=== PATIENT | female | born 1955 | race Caucasian/White ===

== ENCOUNTER 2018-02-27 14:41 | Inpatient (IN) | payer BC ==
[~2018-02-27] VITALS: Ht 160 cm; Wt 57.8 kg
[~2018-02-27 14:41] MED LIST: 5-HY1CAP3 PO; CALC-440 PO; CHOL1CAP57 PO; FLV1 PO; METO25TA56 PO; SLFEC500 PO
[2018-02-27] MEDS ORDERED: METOPROLOL TARTRATE 1 MG/ML VIAL IV STA ×2 (14:56→15:21)
[2018-02-27] MEDS ORDERED: SODIUM CHLORIDE 0.9% 1000ML 500 ML IV STA (14:56)
[2018-02-27] MEDS ORDERED: NITROGLYCERIN 2% OINTMENT 30GM TUBE EXT ONE (15:00)
[2018-02-27 15:14] LABS: HEMATOCRIT 45.4 % (37-47); HEMOGLOBIN 15.4 g/dL (12.0-16.0); MEAN CELL VOLUME 91.7 fL (80-100); MEAN CORPUSCULAR HEMOGLOBIN 31.1 pg (25-34); MEAN CORPUSCULAR HGB CONC 33.9 g/dl (32-36); MEAN PLATELET VOLUME 11.3 fL (7.4-10.4); PLATELET COUNT 210 K/uL (130-400); RED CELL DISTRIBUTION WIDTH CV 14.5 % (11.5-14.5); RED CELL DISTRIBUTION WIDTH SD 48.3 fL (36.4-46.3); WHITE BLOOD COUNT 13.94 K/uL (4.8-10.8)
[2018-02-27 15:22] LABS: INR 0.9 (0.9-1.1); PTT PATIENT 25.7 SECONDS (21.0-31.0)
[2018-02-27 15:37] LABS: ALBUMIN 3.8 gm/dl (3.4-5.0); CALCIUM 9.3 mg/dl (8.5-10.1); CREATININE 0.77 mg/dl (0.60-1.20); POTASSIUM 3.5 mmol/L (3.5-5.1); TOTAL PROTEIN 7.7 gm/dl (6.4-8.2)
--- NOTE | 2018-02-27 15:44 | DIAGNOSTIC IMAGING REPORT ---
CHEST ONE VIEW PORTABLE CLINICAL HISTORY: 62 years-old Female presenting with CHEST PAIN. TECHNIQUE: Portable upright AP view of the chest was obtained. COMPARISON: None. FINDINGS: Cardiomediastinal silhouette normal. Lungs and pleural spaces clear. Osseous structures normal. Upper abdomen normal. IMPRESSION: 1. No acute cardiopulmonary disease. Electronically signed by: Marino Maya M.D. 02/27/2018 3:43 PM Dictated Date/Time: 02/27/2018 3:42 PM
[2018-02-27] MEDS ORDERED: METO25TA3 PO (15:57)
--- NOTE | 2018-02-27 16:34 | EMERGENCY ROOM VISIT NOTE ---
History Report prepared by Elvis: Marleni Haynes Under the Supervision of: Dr. Raphael Pena M.D. 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 She states when her chest pain began, she felt an ache and rates it as a 9/10 in severity. She reports her episode lasted about 1 hour and alleviated after she took Naproxen. She notes she had some diaphoresis and nausea but denies any SOB or history of cardiac issues. The patient is a current smoker. The chest pain has been intermittent since the initial episode. 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 A total of 10 systems reviewed and were otherwise negative. Past Medical & Surgical Medical Problems: (1) No significant past medical history Family History Omitted secondary to age Social History Smoking Status: Current Every Day Smoker Marital Status: Housing Status: lives with significant other Current/Historical Medications Scheduled 5-Hydroxytryptophan (5-Htp), 200 MG PO QPM Cholecalciferol (Vitamin D3), 1,000 PO QAM Folic Acid (Folic Acid), PO QAM Metoprolol Succ (Toprol Xl) (Toprol-Xl), 75 MG PO QPM Sulfasalazine (Sulfasalazine), 500 MG PO BID Allergies Coded Allergies: Escitalopram (Verified Allergy, Intermediate, HALLUCINATES, 02/27/18) Erythromycin (Verified Allergy, Mild, STOMACH UPSET, 02/27/18) Uncoded Allergies: BEE STINGS, HONEY BEE (Allergy, Severe, THROAT SWELLS SHUT, 03/29/15) Physical Exam Vital Signs Date Time Temp Pulse Resp B/P (MAP) Pulse Ox O2 Delivery O2 Flow Rate FiO2 02/27/18 16:50 84 20 140/90 94 Room Air 02/27/18 16:35 71 16 151/97 97 Room Air 02/27/18 15:46 76 24 180/102 95 Room Air 02/27/18 15:41 81 21 171/119 98 02/27/18 15:36 91 169/108 02/27/18 15:13 107 02/27/18 15:09 102 173/102 02/27/18 15:07 103 18 173/102 96 Room Air 02/27/18 15:07 95 Room Air 02/27/18 15:07 98 Room Air 02/27/18 14:43 36.7 98 18 183/100 98 Room Air Physical Exam GENERAL: Patient is in no acute distress. HEENT: No acute trauma, normocephalic atraumatic, mucous membranes moist, no nasal congestion, no scleral icterus. NECK: No stridor, no adenopathy, no meningismus, trachea is midline. LUNGS: Clear to auscultation bilaterally, no wheeze, no rhonchi, breath sounds equal. HEART: Tachycardic with a regular rhythm no murmurs ABDOMEN: Soft, nontender, bowel sounds positive, no hernias, no peritonitis. EXTREMITIES: No cyanosis or edema, full range of motion of all the joints without pain or difficulty, no signs for acute trauma. NEUROLOGIC: Oriented x 3, no acute motor or sensory deficits, no focal weakness. SKIN: No rash, no jaundice, no diaphoresis. Medical Decision & Procedures ER Provider Diagnostic Interpretation: Radiology results as stated below per my review and radiologist interpretation: CHEST ONE VIEW PORTABLE CLINICAL HISTORY: 62 years-old Female presenting with CHEST PAIN. TECHNIQUE: Portable upright AP view of the chest was obtained. COMPARISON: None. FINDINGS: Cardiomediastinal silhouette normal. Lungs and pleural spaces clear. Osseous structures normal. Upper abdomen normal. IMPRESSION: 1. No acute cardiopulmonary disease. Electronically signed by: Marino Maya M.D. 02/27/2018 3:43 PM Laboratory Results 02/27/18 14:55 02/27/18 14:55 Test 02/27/18 14:55 02/27/18 15:08 Red Blood Count 4.95 M/uL (4.2-5.4) Mean Corpuscular Volume 91.7 fL (80-100) Mean Corpuscular Hemoglobin 31.1 pg (25-34) Mean Corpuscular Hemoglobin Concent 33.9 g/dl (32-36) RDW Standard Deviation 48.3 fL (36.4-46.3) RDW Coefficient of Variation 14.5 % (11.5-14.5) Mean Platelet Volume 11.3 fL (7.4-10.4) Prothrombin Time 9.6 SECONDS (9.0-12.0) Prothromb Time International Ratio 0.9 (0.9-1.1) Activated Partial Thromboplast Time 25.7 SECONDS (21.0-31.0) Partial Thromboplastin Ratio 1.0 Anion Gap 8.0 mmol/L (3-11) Est Creatinine Clear Calc Drug Dose 61.0 ml/min Estimated GFR () 94.6 Estimated GFR (Non- 81.6 BUN/Creatinine Ratio 22.8 (10-20) Calcium Level 9.3 mg/dl (8.5-10.1) Magnesium Level 2.0 mg/dl (1.8-2.4) Total Bilirubin 0.3 mg/dl (0.2-1) Aspartate Amino Transf (AST/SGOT) 59 U/L (15-37) Alanine Aminotransferase (ALT/SGPT) 25 U/L (12-78) Alkaline Phosphatase 129 U/L (45-117) Troponin I 4.890 ng/ml (0-0.045) Total Protein 7.7 gm/dl (6.4-8.2) Albumin 3.8 gm/dl (3.4-5.0) Globulin 3.9 gm/dl (2.5-4.0) Albumin/Globulin Ratio 1.0 (0.9-2) Lipase 148 U/L (73-393) Bedside Troponin I 3.530 ng/ml (0-0.045) Laboratory results reviewed by me. Medications Administered Medications (Trade) Dose Ordered Sig/Lena Route Start Time Stop Time Status Last Admin Dose Admin Sodium Chloride 500 ml @ 999 mls/hr Q31M STAT IV 02/27/18 14:56 02/27/18 15:26 DC 02/27/18 15:09 999 MLS/HR Nitroglycerin (Nitroglycerin 2% Oint) 2 inch NOW ONCE EXT 02/27/18 15:00 02/27/18 15:01 DC 02/27/18 15:08 2 INCH Metoprolol Tartrate (Lopressor Iv) 5 mg NOW STAT IV 02/27/18 14:56 02/27/18 14:59 DC 02/27/18 15:09 5 MG Metoprolol Tartrate (Lopressor Iv) 10 mg NOW STAT IV 02/27/18 15:21 02/27/18 15:23 DC 02/27/18 15:36 10 MG Heparin Sodium/ Dextrose (Heparin 25,000 Unit/500ml D5W) 25,000 unit STK-MED ONCE .ROUTE 02/27/18 16:47 02/27/18 16:48 DC 02/27/18 16:53 25,000 UNIT ECG Per My Interpretation Indication: chest pain Rate (beats per minute): 111 Rhythm: sinus tachycardia Findings: ST depression (Anterior, concerning for ischemia), other (no ST elevation) Change: Repeat EKG done at 1547 shows normal sinus, rate of 74, very subtle ST depressions laterally. Significantly improved from the EKG done earlier today ED Course 1451: The patient was evaluated in room C3. A complete history and physical exam was performed. 1456: Ordered Lopressor IV 5 mg IV, Sodium Chloride 500 ml @ 999 mls/hr IV 1500: Ordered Nitroglycerin 2 inch 1521: Ordered Lopressor IV 10 mg IV 1536: I reevaluated the patient at this time. I informed her of her results. 1608: Discussed the patient's case with Dr. Camilo, [facility] Cardiology. He states the pt should be given heparin for now and be further evaluated in the hospital. 1611: Discussed the patient's case with Dr. Palumbo, [facility] Hospitalist. The patient will be evaluated for further management. 1634: Ordered Heparin Sodium/Dextrose 1 ea Medical Decision Differential diagnosis: Etiologies such as PR, angina, PE, pneumonia, pneumothorax, anemia, electrolyte imbalance, as well as others were entertained. There is a mild leukocytosis, this could be consistent with infection or the stress of her situation. No concerning anemia. No significant electrolyte abnormality, kidney failure or hepatitis. There is no coagulopathy. Chest film does not show mediastinal widening, pneumonia or pneumothorax. EKG shows a sinus tachycardia with some ST depressions in the anterior leads, this was concerning for ischemia. Cardiac enzyme testing 1 does show evidence for a troponin elevation. I am concerned the patient may have had an PR a few days ago. Patient was aggressively managed. She received IV saline, IV Lopressor and nitroglycerin paste. She had already taken oral aspirin before arrival so no additional aspirin was given. She was eventually placed on IV heparin. After treatment, a repeat EKG was done, the ST changes had resolved. The patient was pain-free. I spoke to cardiology, I talked to the patient. I spoke to the case finisher. The on-call hospitalist was consulted. A hospitalization is warranted. She has suffered an PR, likely a few days ago. Medication Reconcilliation Current Medication List: was personally reviewed by me Blood Pressure Screening Patient's blood pressure: Elevated blood pressure Referred to Hospitalist Consults Time Called: 1538 Consulting Physician: Dr. Palumbo [facility] Hospitalist Returned Call: 1608 Discussed the patient's case with Dr. Camilo, [facility] Card[facility]. He states the pt should be given heparin for now and be further evaluated in the hospital. Additional Consults: Time Called: 1552 Consulted Physician: Dr. Camilo, [facility] Card[facility] Returned Call: 1611 Additional Comments: Discussed the patient's case with Dr. Palumbo [facility] Hospitalist. The patient will be evaluated for further management. Impression Primary Impression: Acute PR Additional Impressions: Acute electrocardiogram changes Tachycardia Critical Care I have personally spent greater than 40 minutes of critical care time in the direct management of this patient. This includes bedside care, interpretation of diagnostic studies, and testing, discussion with consultants, patient, and family members, and other required patient management activities. This 40 minutes is in excess of all separately billable procedures. Scribe Attestation The scribe's documentation has been prepared under my direction and personally reviewed by me in its entirety. I confirm that the note above accurately reflects all work, treatment, procedures, and medical decision making performed by me. Departure Information Dispostion Being Evaluated By Hospitalist (Dr. Palumbo, [facility] Hospitalist) Referrals No Doctor, Assigned (PCP) Patient Instructions My [facility] Problem Qualifiers
[2018-02-27] MEDS ORDERED: HEPARIN 25000 UNIT/500 ML D5W ONE (16:47)
[2018-02-27] MEDS ORDERED: ONDANSETRON INJ 2 MG/ML 2 ML VIAL IV PRN (17:15)
[2018-02-27] MEDS ORDERED: ALUMINUM/MAGNESIUM/SIMETH (MAALOX MAX) 30 ML UDC PO PRN (17:15)
[2018-02-27] MEDS ORDERED: MoRPHine SULFATE 2 MG/ML CARP IV PRN (17:15)
[2018-02-27] MEDS ORDERED: ZOLPIDEM TARTRATE 5 MG TAB PO PRN (17:15)
[2018-02-27] MEDS ORDERED: MAGNESIUM HYDROXIDE SUSP 30 ML UDC PO PRN (17:15)
[2018-02-27] MEDS ORDERED: POLYETHYLENE (MIRALAX) 17 GM PACK PO PRN (17:15)
[2018-02-27] MEDS ORDERED: ACETAMINOPHEN 325 MG TAB PO PRN (17:15)
[2018-02-27] MEDS ORDERED: NITROGLYCERIN 0.4 MG SL PER TAB CHARGE SL PRN (17:15)
--- NOTE | 2018-02-27 17:21 | History and Physical ---
History & Physical Date & Time of Service: Feb 27, 2018 at 17:17 Chief Complaint: Chest Pain,Arm Pain, Nausea Primary Care Physician: Mary Lou Perez M.D. History of Present Illness Source: patient, family, hospital records, other 62 y/o F Hx HTN, HLD, smoker, psoriatic arthritis. She developed intermittent CP 4 days earlier which persisted for an extended period prior to admission. The pain is central with radiation to the L arm. She describes nausea with a few episodes of vomiting and diaphoresis. She denies SOB. An initial EKG demonstrated anterior depressions which normalized when her BP and HR improved following administration of IV Bblocker. Initial troponin is elevated at 4.5. She is pain free at the time of medical evaluation. Past Medical/Surgical History 1) HTN 2) Smoker 3) HLD - statin intolerant 4) Psoriatic arthritis 5) NSTEMI 02/27/18 Family History Omitted secondary to age Mother owing to complications of DM and infection Father at an advanced age - cause not specified No known history of CAD in family Social History Smokes one pack daily - does not drink Smoking Status: Current Every Day Smoker Marital Status: Allergies Coded Allergies: Escitalopram (Verified Allergy, Intermediate, HALLUCINATES, 02/27/18) Erythromycin (Verified Allergy, Mild, STOMACH UPSET, 02/27/18) Uncoded Allergies: BEE STINGS, HONEY BEE (Allergy, Severe, THROAT SWELLS SHUT, 03/29/15) Home Medications Scheduled 5-Hydroxytryptophan (5-Htp), 200 MG PO QPM Cholecalciferol (Vitamin D3), 1,000 PO QAM Folic Acid (Folic Acid), PO QAM Metoprolol Succ (Toprol Xl) (Toprol-Xl), 75 MG PO QPM Sulfasalazine (Sulfasalazine), 500 MG PO BID Review of Systems Constitutional: No fever, No chills, No sweats Eyes: No worsening of vision ENT: No hearing loss, No unusual epistaxis, No nasal symptoms Respiratory: No cough, No sputum, No wheezing Cardiovascular: + chest pain, No orthopnea, No PND Abdomen: No pain, No nausea, No vomiting Musculoskeletal: No joint pain Genitourinary - Female: No dysuria, No urinary frequency Neurologic: No memory loss, No paralysis, No weakness Psychiatric: No depression symptoms Endocrine: No fatigue Hematologic / Lymphatic: No abnormal bleeding/bruising Integumentary: No rash Allergic / Immunologic: No environmental allergies Physical Exam Vital Signs Date Time Temp Pulse Resp B/P (MAP) Pulse Ox O2 Delivery O2 Flow Rate FiO2 02/27/18 16:50 84 20 140/90 94 Room Air 02/27/18 16:35 71 16 151/97 97 Room Air 02/27/18 15:46 76 24 180/102 95 Room Air 02/27/18 15:41 81 21 171/119 98 02/27/18 15:36 91 169/108 02/27/18 15:13 107 02/27/18 15:09 102 173/102 02/27/18 15:07 103 18 173/102 96 Room Air 02/27/18 15:07 95 Room Air 02/27/18 15:07 98 Room Air 02/27/18 14:43 36.7 98 18 183/100 98 Room Air General Appearance: WD/WN, no apparent distress Head: normocephalic Eyes: normal inspection ENT: normal ENT inspection, pharynx normal Neck: supple, no JVD Respiratory/Chest: chest non-tender, lungs clear Cardiovascular: regular rate, rhythm, no edema, no gallop Abdomen/GI: normal bowel sounds, non tender, soft Back: normal inspection, no CVA tenderness Extremities/Musculoskelatal: normal inspection, no calf tenderness, normal capillary refill Neurologic/Psych: custodian blood bank II-XII nml as tested, no motor/sensory deficits, alert, oriented x 3 Skin: normal color Diagnostics Laboratory Results Results Past 24 Hours Test 02/27/18 14:55 02/27/18 15:08 Range/Units White Blood Count 13.94 4.8-10.8 K/uL Red Blood Count 4.95 4.2-5.4 M/uL Hemoglobin 15.4 12.0-16.0 g/dL Hematocrit 45.4 37-47 % Mean Corpuscular Volume 91.7 80-100 fL Mean Corpuscular Hemoglobin 31.1 25-34 pg Mean Corpuscular Hemoglobin Concent 33.9 32-36 g/dl RDW Standard Deviation 48.3 36.4-46.3 fL RDW Coefficient of Variation 14.5 11.5-14.5 % Platelet Count 210 130-400 K/uL Mean Platelet Volume 11.3 7.4-10.4 fL Prothrombin Time 9.6 9.0-12.0 SECONDS Prothromb Time International Ratio 0.9 0.9-1.1 Activated Partial Thromboplast Time 25.7 21.0-31.0 SECONDS Partial Thromboplastin Ratio 1.0 Sodium Level 143 136-145 mmol/L Potassium Level 3.5 3.5-5.1 mmol/L Chloride Level 110 98-107 mmol/L Carbon Dioxide Level 25 21-32 mmol/L Anion Gap 8.0 3-11 mmol/L Blood Urea Nitrogen 18 7-18 mg/dl Creatinine 0.77 0.60-1.20 mg/dl Est Creatinine Clear Calc Drug Dose 61.0 ml/min Estimated GFR () 94.6 Estimated GFR (Non- 81.6 BUN/Creatinine Ratio 22.8 10-20 Random Glucose 99 70-99 mg/dl Calcium Level 9.3 8.5-10.1 mg/dl Magnesium Level 2.0 1.8-2.4 mg/dl Total Bilirubin 0.3 0.2-1 mg/dl Aspartate Amino Transf (AST/SGOT) 59 15-37 U/L Alanine Aminotransferase (ALT/SGPT) 25 12-78 U/L Alkaline Phosphatase 129 45-117 U/L Troponin I 4.890 0-0.045 ng/ml Total Protein 7.7 6.4-8.2 gm/dl Albumin 3.8 3.4-5.0 gm/dl Globulin 3.9 2.5-4.0 gm/dl Albumin/Globulin Ratio 1.0 0.9-2 Lipase 148 73-393 U/L Bedside Troponin I 3.530 0-0.045 ng/ml EKG Initial: Sinus tach, ST depressions in anterior leads - normal EKG following rate control with IV B marv Impression Assessment and Plan 62 y/o F Hx HTN, HLD, smoker, psoriatic arthritis. She developed intermittent CP 4 days earlier which persisted for an extended period prior to admission. The pain is central with radiation to the L arm. She describes nausea with a few episodes of vomiting and diaphoresis. She denies SOB. An initial EKG demonstrated anterior depressions which normalized when her BP and HR improved following administration of IV Bblocker. Initial troponin is elevated at 4.5. She is pain free at the time of medical evaluation. 1) NSTEMI - PLaced on full-dose Heparin, ASA. She is statin intolerant. We will continue her B marv and provide additional as needed. 2) HTN - may be poorly controlled - we will prefer to increase her Metoprolol dose for better control as her HR allows. Hydralazine and NTG can also be employed. 3) Psoriatic arthritis - take a sulfa drug only which she can continue. 4) LFTs are slightly elevated - this may run in the family per pt. We will trend AM. If stable, she can f/u as outpt. 5) We have stressed smoking cessation. Full code - Heparin prophylaxis Total time for this admit including review of labs, meds, imaging, records - discussion with pt and ER attending - 36 min Resuscitation Status VTE Prophylaxis Will order VTE Prophylaxis: Yes
[2018-02-27] MEDS ORDERED: HydrALAZINE HCL 20 MG/ML VIAL IV. PRN (17:30)
[2018-02-27] MEDS: HEPARIN 25,000 UNIT/500ML D5W 500 ML IV SCH (17:45)
[2018-02-27] MEDS ORDERED: METOPROLOL TARTRATE 1 MG/ML VIAL IV PRN (18:00)
[2018-02-27 18:26] VITALS: BP 182/101; PULSE 88; TEMP 36.8; O2SAT 95; Ht 160 cm; Wt 57.8 kg
[2018-02-27] MEDS ORDERED: NURSING VERBAL MED ORDER ONE (19:15)
[2018-02-27] MEDS: D5NSS + 20MEQ KCL 1,000 ML IV SCH (19:47)
[2018-02-27 20:16] VITALS: BP 170/94; PULSE 81; TEMP 36.7; O2SAT 97
[2018-02-27] MEDS ORDERED: METOPROLOL TARTRATE 25 MG TAB PO SCH (21:00)
[2018-02-27] MEDS ORDERED: [UNRECOGNIZED DRUG - OTHER] PO SCH (21:00)
[2018-02-27] MEDS ORDERED: METOPROLOL SUCC 25MG EXT REL TAB PO SCH (21:00)
[2018-02-27] MEDS ORDERED: SULFASALAZINE 500 MG TABEC PO SCH (21:00)
[2018-02-27] MEDS ORDERED: ATORVASTATIN 40 MG TAB PO SCH (21:00)
[2018-02-27] MEDS: SULFASALAZINE 500 MG TABEC PO SCH (21:39)
[2018-02-27] MEDS: METOPROLOL SUCC 25MG EXT REL TAB PO SCH (21:40)
[2018-02-27 21:41] VITALS: BP 141/89; PULSE 77
[2018-02-27 23:25] LABS: PTT PATIENT 38.3 SECONDS (21.0-31.0)
[2018-02-27 23:52] VITALS: BP 132/82; PULSE 82; TEMP 36.7; O2SAT 95
[2018-02-28] VITALS (7 sets, daily range): BP systolic 126–174; BP diastolic 75–103; PULSE 81–101; TEMP 36.6–36.9; O2SAT 93–97
[2018-02-28] MEDS ORDERED: HEPARIN IV BOLUS 4,000 UNIT in SYRINGE 0 ML IV ONE (00:45)
[2018-02-28] MEDS: D5NSS + 20MEQ KCL 1,000 ML IV SCH (06:06)
[2018-02-28 07:18] LABS: PTT PATIENT 92.8 SECONDS (21.0-31.0)
[2018-02-28] MEDS: HEPARIN 25,000 UNIT/500ML D5W 500 ML IV SCH ×2 (07:23→15:38)
[2018-02-28] MEDS: SULFASALAZINE 500 MG TABEC PO SCH ×2 (07:58→20:57)
[2018-02-28] MEDS: ASPIRIN 81 MG ECTAB PO SCH (08:00)
--- NOTE | 2018-02-28 09:33 | ECHOCARDIOGRAM REPORT ---
*NOTICE TO RECEIVING REPUBLICAN AGENCY This information is strictly Confidential and protected under [place] law. [place] law prohibits you from making any further disclosure of this information unless further disclosure is expressly permitted by the written consent of the person to whom it pertains or is authorized by law. A general authorization for the release of medical or other information is not sufficient for this purpose. Hospital accepts no responsibility if the information is made available to any other person, INCLUDING THE PATIENT. Interpretation Summary * Name: GALILEO HAGER Study Date: 02/28/2018 07:21 AM BP: 138/85 mmHg * Patient Location: C.2T\S\E218\S\1 HR: 86 * : 1955 (M/d/yyyy) Gender: Female Height: 63 in * Age: 62 yrs Ethnicity: [place] Weight: 126 lb * Ordering Physician: Rodrigo Palumbo * Referring Physician: Self, Referred * Performed By: Mary Lou Martinez RCS * * Reason For Study: NSTEMI / ELEVATED TROPONIN * BSA: 1.6 m2 * -- Conclusions -- * 1. Normal left ventricular size and systolic function. EF 55-60%. Hypokinesis involving the base to distal anterolateral wall, mid to distal anterior wall, and mid inferolateral wall segments. Moderate to severe concentric left ventricular hypertrophy. Type 2 diastolic dysfunction. * 2. There is mild mitral regurgitation. * 3. No prior study available for comparison. Procedure Details * A complete two-dimensional transthoracic echocardiogram was performed (2D, M-mode, Doppler and color flow Doppler). Left Ventricle * Normal left ventricular size and systolic function. EF 55-60%. Hypokinesis involving the base to distal anterolateral wall, mid to distal anterior wall, and mid inferolateral wall segments. Moderate to severe concentric left ventricular hypertrophy. Type 2 diastolic dysfunction. Right Ventricle * The right ventricle is normal in size and function. * The right ventricular systolic function is normal as assessed by tricuspid annular plane systolic excursion (TAPSE) (normal >1.5 cm). Atria * The left atrial size is normal. * Right atrial size is normal. * There is no evidence of atrial septal defect, but resolution does not allow assessment for a patent foramen ovale. Mitral Valve * The mitral valve is grossly normal. * There is no mitral valve stenosis. * There is mild mitral regurgitation. Tricuspid Valve * The tricuspid valve is not well visualized, but is grossly normal. * There is no tricuspid stenosis. * Significant tricuspid regurgitation is absent. Aortic Valve * The aortic valve is trileaflet. * No hemodynamically significant valvular aortic stenosis. * No aortic regurgitation is present. Pulmonic Valve * The pulmonary valve is inadequately visualized, but the Doppler data is adequate for interpretation. * There is no pulmonic valvular stenosis. * There is no significant pulmonary regurgitation. Great Vessels * The aortic root is normal size. * Normal pulmonary venous flow patterns. Pericardium/Pleural * There is no pericardial effusion. Great Vessels * Normal inferior vena cava size and collapsability with sniff indicates a normal right atrial pressure of 3 mmHg MMode 2D Measurements and Calculations IVSd 1.6 cm IVSs 1.7 cm LVIDd 3.7 cm LVPWd 1.5 cm LVPWs 1.6 cm IVS/LVPW 1.1 EDV(Teich) 58.4 ml EDV(cubed) 51.0 ml % IVS thick 6.2 % % LVPW thick 9.0 % LV mass(C)d 216.8 grams LV mass(C)dI 136.4 grams/m\S\2 Ao root diam 3.1 cm Ao root area 7.7 cm\S\2 ACS 1.9 cm LA dimension 2.6 cm LA/Ao 0.84 LVOT diam 1.9 cm LVOT area 3.0 cm\S\2 LVAd ap4 24.8 cm\S\2 LVLd ap4 7.2 cm EDV(MOD-sp4) 69.7 ml EDV(sp4-el) 72.4 ml LVAs ap4 14.8 cm\S\2 LVLs ap4 5.9 cm ESV(MOD-sp4) 29.9 ml ESV(sp4-el) 31.2 ml EF(MOD-sp4) 57.1 % EF(sp4-el) 56.9 % LVAd ap2 23.4 cm\S\2 LVLd ap2 7.3 cm EDV(MOD-sp2) 63.9 ml EDV(sp2-el) 64.0 ml LVAs ap2 13.8 cm\S\2 LVLs ap2 6.9 cm ESV(MOD-sp2) 22.8 ml ESV(sp2-el) 23.6 ml EF(MOD-sp2) 64.2 % EF(sp2-el) 63.2 % LVLd %diff 0.74 % EDV(MOD-bp) 66.6 ml LVLs %diff 13.7 % ESV(MOD-bp) 28.2 ml EF(MOD-bp) 57.6 % SV(MOD-sp4) 39.8 ml SI(MOD-sp4) 25.1 ml/m\S\2 SV(MOD-sp2) 41.0 ml SI(MOD-sp2) 25.8 ml/m\S\2 SV(MOD-bp) 38.3 ml SI(MOD-bp) 24.1 ml/m\S\2 SV(sp4-el) 41.2 ml SI(sp4-el) 25.9 ml/m\S\2 SV(sp2-el) 40.4 ml SI(sp2-el) 25.4 ml/m\S\2 Doppler Measurements and Calculations MV E max asuncion 121.9 cm/sec MV A max asuncion 100.8 cm/sec MV E/A 1.2 MV P1/2t max asuncion 136.5 cm/sec MV P1/2t 68.4 msec MVA(P1/2t) 3.2 cm\S\2 MV dec slope 584.8 cm/sec\S\2 MV dec time 0.21 sec Ao V2 max 91.8 cm/sec Ao max PG 3.4 mmHg Ao max PG (full) 0.24 mmHg SHAJI(V,A) 2.9 cm\S\2 SHAJI(V,D) 2.9 cm\S\2 LV V1 max PG 3.1 mmHg LV V1 max 88.4 cm/sec PA V2 max 91.8 cm/sec PA max PG 3.4 mmHg PI max asuncion 160.1 cm/sec PI max PG 10.3 mmHg PI dec slope 181.0 cm/sec\S\2 PI P1/2t 259.1 msec
[2018-02-28] MEDS ORDERED: NURSING VERBAL MED ORDER ONE ×3 (09:45→14:15)
--- NOTE | 2018-02-28 10:06 | Cardiology Consultation ---
Cardiology Consultation Date of Consultation: Feb 28, 2018. Requesting Physician: Dr. Palumbo Attending Physician: Dr. Campa Reason for Consultation: NSTEMI Pt evaluation today including: conversation w/ patient, conversation w/ family ( and daughter), physical exam, chart review, lab review, review of studies, review of inpatient medication list, conversation w/ attending History of Present Illness Mrs Mckay is a very pleasant 62-year-old female with a history significant for hypertension, dyslipidemia, and tobacco abuse. She was admitted to [facility] on 02/27/2018 with chest discomfort and elevated troponin levels. Approximately 5 days ago while sitting, she had a substernal chest discomfort described as an ache. It radiated to the left side of the chest, and down the left arm. She also had some pain in her right shoulder. She took naproxen and her pain subsided within 10-15 minutes. She continued to have intermittent chest discomfort over the next 4 days with the longest episode lasting up to 20 minutes. She had intermittent associated nausea and diaphoresis but no shortness of breath. Her last episode of chest discomfort which just prior to presentation yesterday morning for which she took aspirin at home. By the time she presented to the emergency department, she said she had no further chest discomfort. Her drove her to the hospital. She was given nitroglycerin paste and has not had any further chest pain, but did have 1 episode of right shoulder pain. She denies shortness of breath, syncope, near-syncope, palpitations, or edema. She did have 1 episode of dizziness or lightheadedness yesterday which was around the time of a 3.9 second pause noted on telemetry. She states that she tried some statin therapy in the past but did not tolerate it secondary to myalgias. She does not recall the medication although her daughter recognized Zocor/simvastatin. She does not recall if she tried more than 1 medication. She states that she is willing to try another 1 now however. She has smoked anywhere from 1-3 packs per day for 51 years, since the age of 11. She is not interested in quitting. She has tried quitting in the past, but has no interest now. She denies melena, hematochezia, hematuria, or other bleeding. She denies fevers, chills, vomiting, or diarrhea. She is currently chest pain-free. Review of systems: As above. Review of systems otherwise negative/ unremarkable. Past Medical/Surgical History 1. Hypertension 2. Dyslipidemia 3. Tobacco abuse 4. Psoriatic arthritis Family History Omitted secondary to age No known premature CAD. Social History She has smoked since the age of 11, 1-3 packs for 51 years. Rare alcohol. No drugs. She lives at home with her . She has 3 sons and 1 daughter, Anali. Her and daughter are present at the bedside. She is retired from a [employer] company. Allergies Coded Allergies: Erythromycin (Verified Allergy, Mild, STOMACH UPSET, 02/27/18) Escitalopram (Verified Adverse Reaction, Intermediate, HALLUCINATES, ) Uncoded Allergies: BEE STINGS, HONEY BEE (Allergy, Severe, THROAT SWELLS SHUT, 03/29/15) Medications Reported Home Medications Medications Dose Route/Sig Max Daily Dose Days Date Category Toprol-Xl (Metoprolol Succinate) 25 Mg Tabcr 75 Mg PO QPM 02/27/18 Reported 5-Htp (5-Hydroxytryptophan) 100 Mg Cap 200 Mg PO QPM 03/29/15 Reported Sulfasalazine 500 Mg Tabec 500 Mg PO BID 03/29/15 Reported Vitamin D3 (Cholecalciferol) 1,000 Unit Cap 1,000 PO QAM 03/29/15 Reported Folic Acid 1 Mg Tab PO QAM 03/29/15 Reported Current Inpatient Medications Medications (Trade) Dose Ordered Sig/Lena Route Start Time Stop Time Status Last Admin Dose Admin Acetaminophen (Tylenol Tab) 650 mg Q4H PRN PO 02/27/18 17:15 03/29/18 17:14 Al Hydrox/Mg Hydrox/Simethicone (Maalox Max Susp) 15 ml Q4H PRN PO 02/27/18 17:15 03/29/18 17:14 Magnesium Hydroxide (Milk Of Magnesia Susp) 30 ml Q12H PRN PO 02/27/18 17:15 03/29/18 17:14 Zolpidem Tartrate (Ambien Tab) 5 mg HSZ PRN PO 02/27/18 17:15 03/29/18 17:14 Ondansetron HCl (Zofran Inj) 4 mg Q6H PRN IV 02/27/18 17:15 03/29/18 17:14 Nitroglycerin (Nitrostat Tab) 0.4 mg UD PRN SL 02/27/18 17:15 03/29/18 17:14 Morphine Sulfate (MoRPHine SULFATE INJ) 2 mg Q30M PRN IV 02/27/18 17:15 03/13/18 17:14 Polyethylene (Miralax Powder Packet) 17 gm DAILY PRN PO 02/27/18 17:15 03/29/18 17:14 Aspirin (Ecotrin Tab) 81 mg QAM PO 02/28/18 09:00 03/30/18 08:59 02/28/18 08:00 81 MG Hydralazine HCl (HydrALAZINE INJ) 2.5 mg Q6H PRN IV. 02/27/18 17:30 03/29/18 17:29 Potassium Chloride/Dextrose/ Sod Cl 1,000 ml @ 100 mls/hr Q10H IV 02/27/18 19:15 02/28/18 15:14 02/28/18 06:06 100 MLS/HR Heparin Sodium/ Dextrose 500 ml @ 21 mls/hr [id number] IV 02/27/18 17:45 03/29/18 17:44 02/28/18 07:23 21 MLS/HR Metoprolol Tartrate (Lopressor Iv) 2.5 mg Q6 PRN IV 02/27/18 18:00 03/29/18 17:59 02/27/18 20:35 2.5 MG Sulfasalazine (Azulfidine Delayed Rel Tab) 500 mg BID PO 02/27/18 21:00 03/29/18 20:59 02/28/18 07:58 500 MG Folic Acid (Folvite Tab) 1 mg QAM PO 02/28/18 09:00 03/30/18 08:59 02/28/18 07:59 1 MG Metoprolol Succinate (Toprol Xl Tab) 75 mg QPM PO 02/27/18 21:00 03/29/18 20:59 02/27/18 21:40 75 MG Miscellaneous Information (Nursing Verbal Med Order) 1 ea ONE ONCE N/A 02/28/18 09:45 02/28/18 09:46 UNV Physical Exam Vital Signs Past 12 Hours Date Time Temp Pulse Resp B/P (MAP) Pulse Ox O2 Delivery O2 Flow Rate FiO2 02/28/18 07:15 36.6 84 18 148/80 (102) 97 Room Air 02/28/18 04:18 36.8 91 18 138/85 (102) 93 Room Air 02/27/18 23:52 36.7 82 18 132/82 (99) 95 Room Air Gen.: No acute distress. Alert and oriented. HEENT: Anicteric sclera. Neck: No JVD. No bruits. Normal carotid upstrokes bilaterally. Cardiac: PMI was nondisplaced. No ventricular heave. Regular rate and rhythm. Normal S1-S2. No murmurs, rubs, or gallops. Pulmonary: Clear to auscultation bilaterally without wheezes, rales, or rhonchi. Abdomen: Soft, nontender, nondistended, with normoactive bowel sounds. No bruits noted. Extremities: 2+ radial pulses bilaterally; Allens's ok. 2+ femoral pulses bilaterally; no bruit. 2+ posterior tibialis pulses bilaterally. No edema or cyanosis. No palpable cords. Psychiatric: Affect appears appropriate. Data Laboratory Results: Last 24 Hours Test 02/27/18 14:55 02/27/18 15:08 02/27/18 19:28 02/27/18 23:05 White Blood Count 13.94 K/uL Red Blood Count 4.95 M/uL Hemoglobin 15.4 g/dL Hematocrit 45.4 % Mean Corpuscular Volume 91.7 fL Mean Corpuscular Hemoglobin 31.1 pg Mean Corpuscular Hemoglobin Concent 33.9 g/dl RDW Standard Deviation 48.3 fL RDW Coefficient of Variation 14.5 % Platelet Count 210 K/uL Mean Platelet Volume 11.3 fL Prothrombin Time 9.6 SECONDS Prothromb Time International Ratio 0.9 Activated Partial Thromboplast Time 25.7 SECONDS 38.3 SECONDS Partial Thromboplastin Ratio 1.0 1.5 Sodium Level 143 mmol/L Potassium Level 3.5 mmol/L Chloride Level 110 mmol/L Carbon Dioxide Level 25 mmol/L Anion Gap 8.0 mmol/L Blood Urea Nitrogen 18 mg/dl Creatinine 0.77 mg/dl Est Creatinine Clear Calc Drug Dose 61.0 ml/min Estimated GFR () 94.6 Estimated GFR (Non- 81.6 BUN/Creatinine Ratio 22.8 Random Glucose 99 mg/dl Calcium Level 9.3 mg/dl Magnesium Level 2.0 mg/dl Total Bilirubin 0.3 mg/dl Aspartate Amino Transf (AST/SGOT) 59 U/L Alanine Aminotransferase (ALT/SGPT) 25 U/L Alkaline Phosphatase 129 U/L Troponin I 4.890 ng/ml 7.190 ng/ml Total Protein 7.7 gm/dl Albumin 3.8 gm/dl Globulin 3.9 gm/dl Albumin/Globulin Ratio 1.0 Lipase 148 U/L Bedside Troponin I 3.530 ng/ml Test 02/28/18 00:52 02/28/18 06:32 Troponin I 10.600 ng/ml 7.950 ng/ml Activated Partial Thromboplast Time 92.8 SECONDS Partial Thromboplastin Ratio 3.6 Triglycerides Level 130 mg/dl Cholesterol Level 201 mg/dl HDL Cholesterol 50 mg/dl LDL Cholesterol, Calculated 125 mg/dl VLDL Cholesterol, Calculated 26 mg/dl Cholesterol/HDL Ratio 4.0 Telemetry personally reviewed: Sinus rhythm. She did have up to a 3.9 second pause on 09/27/2017 at 9:15 p.m.. ECGs personally reviewed: ECG 02/28/2018 at 8:20 a.m.: Sinus rhythm at [address]/T-wave abnormality. ECG 02/27/2018 at 3:47 p.m.: Sinus rhythm [address]/T-wave abnormality. ECG 02/27/2018 at 2:47 p.m.: Sinus tachycardia [address]/T-wave abnormality. Echocardiogram 02/28/2018: 1. Normal left ventricular size and systolic function. EF 55-60%. Hypokinesis involving the base to distal anterolateral wall, mid to distal anterior wall, and mid inferolateral wall segments. Moderate to severe concentric left ventricular hypertrophy. Type 2 diastolic dysfunction. 2. There is mild mitral regurgitation. Chest x-ray 02/27/2018: No acute process. Assessment & Plan ASSESSMENT/PLAN: 1. NSTEMI: She has had 4 days of unstable angina with elevated troponins on presentation. Continue to trend troponin levels until peak. She is currently chest pain-free. Emergent cardiac catheterization is not indicated but coronary angiography was recommended and she is agreeable to undergo the procedure. Risks and benefits were discussed with her. She was made aware that CT surgery is not available at this facility. She is also agreeable for PCI, if deemed appropriate. Continue nitroglycerin, aspirin, beta-marv therapy. High-intensity statin therapy will be initiated and she is agreeable. Continue heparin drip. 2. Hypertension: Blood pressure elevated. Continue beta-marv. Will initiate MARY ANNE-inhibitor. 3. Dyslipidemia: High-intensity statin therapy recommended. If she has myalgias, can alter therapy. It appears as though she did not tolerate simvastatin in the past. 4. Tobacco abuse: It was strongly recommended that she stop smoking but she is not interested. 5. Mitral regurgitation: Non severe. Can follow over time. Could be ischemic in nature as well. 6. Sinus pause: Occurred shortly following IV metoprolol. Continue telemetry. 7. Disposition: Recommend continuous telemetry. Coronary angiography, (non urgent) will likely be scheduled for tomorrow. NPO after midnight. Highly complex medical issues. Thank you for allowing me to participate in the care of your patient. Please call for any other questions or concerns. Sincerely, Raman Camilo M.D.
[2018-02-28] MEDS ORDERED: TRYPTOPHAN PO PRN (10:15)
[2018-02-28] MEDS ORDERED: LISINOPRIL 5 MG TAB PO ONE (10:15)
[2018-02-28] MEDS: NICOTINE 21 MG/24 HR TDSY EXT SCH (10:34)
--- NOTE | 2018-02-28 12:31 | Progress Note ---
Subjective Date of Service: Feb 28, 2018. Subjective Pt evaluation today including: conversation w/ patient, conversation w/ family , physical exam, chart review, lab review, review of studies, conversation w/ telecommunications consultant, review of inpatient medication list Pleasant, conversational, no chest pain Problem List Medical Problems: (1) Acute electrocardiogram changes Status: Acute (2) Acute [place] Status: Acute (3) Tachycardia Status: Acute Review of Systems Constitutional: No fever, No chills, No sweats, No weight loss, No weakness, No fatigue, No problem reported Eyes: No worsening of vision, No eye pain, No redness, No discharge, No diplopia ENT: No hearing loss, No unusual epistaxis, No nasal symptoms, No sore throat, No tinnitus, No dental problems, No trouble swallowing Respiratory: No cough, No sputum, No wheezing, No shortness of breath, No dyspnea on exertion, No dyspnea at rest, No hemoptysis Cardiac: No chest pain, No orthopnea, No PND, No edema, No claudication, No palpitations Abdomen: No pain, No nausea, No vomiting, No diarrhea, No constipation Musculoskeletal: No joint pain, No muscle pain, No swelling, No calf pain Female : No dysuria, No urinary frequency, No hematuria, No incontinence, No abnormal vaginal bleeding, No vaginal discharge Neurologic: No memory loss, No paralysis, No weakness, No numbness/tingling, No vertigo, No balance problems Psychiatric: No depression symptoms, No anhedonism, No anxiety, No insomnia, No substance abuse Heme: No abnormal bleeding/bruising, No clotting problems, No swollen lymph nodes, No night sweats Endo: No fatigue, No excessive thirst, No excessive urination Skin: No rash, No itch, No new/changing skin lesions, No color change, No bleeding Objective Vital Signs Date Time Temp Pulse Resp B/P (MAP) Pulse Ox O2 Delivery O2 Flow Rate FiO2 02/28/18 11:53 36.9 101 20 169/101 (123) 97 Room Air 174/103 (126) 02/28/18 08:00 Room Air 02/28/18 07:15 36.6 84 18 148/80 (102) 97 Room Air 02/28/18 04:18 36.8 91 18 138/85 (102) 93 Room Air 02/27/18 23:52 36.7 82 18 132/82 (99) 95 Room Air 02/27/18 21:41 77 141/89 (106) 02/27/18 20:35 81 170/94 02/27/18 20:16 36.7 81 20 170/94 (119) 97 Room Air 02/27/18 20:00 Room Air 02/27/18 18:26 36.8 88 18 182/101 95 Room Air 02/27/18 17:45 85 24 153/93 98 Room Air 02/27/18 16:50 84 20 140/90 94 Room Air 02/27/18 16:35 71 16 151/97 97 Room Air 02/27/18 15:46 76 24 180/102 95 Room Air 02/27/18 15:41 81 21 171/119 98 02/27/18 15:36 91 169/108 02/27/18 15:13 107 02/27/18 15:09 102 173/102 02/27/18 15:07 103 18 173/102 96 Room Air 02/27/18 15:07 95 Room Air 02/27/18 15:07 98 Room Air 02/27/18 14:43 36.7 98 18 183/100 98 Room Air Physical Exam General Appearance: WD/WN, no apparent distress Eyes: normal inspection, PERRL, EOMI, sclerae normal ENT: normal ENT inspection, hearing grossly normal, pharynx normal Neck: supple, no adenopathy, thyroid normal, no JVD, no carotid bruits, trachea midline Respiratory/Chest: chest non-tender, lungs clear, normal breath sounds, no respiratory distress, no accessory muscle use Cardiovascular: regular rate, rhythm, no edema, no gallop, no JVD, no murmur Abdomen: normal bowel sounds, non tender, soft, no organomegaly, no pulsatile mass Extremities: normal range of motion, non-tender, normal inspection, no pedal edema, no calf tenderness, normal capillary refill, pelvis stable Neurologic/Psychiatric: supervisor international reservations II-XII nml as tested, no motor/sensory deficits, alert, normal mood/affect, oriented x 3 Skin: normal color, warm/dry, no rash Lymphatic: no adenopathy Laboratory Results Last 24 Hours Test 02/27/18 14:55 02/27/18 15:08 02/27/18 19:28 02/27/18 23:05 White Blood Count 13.94 K/uL Red Blood Count 4.95 M/uL Hemoglobin 15.4 g/dL Hematocrit 45.4 % Mean Corpuscular Volume 91.7 fL Mean Corpuscular Hemoglobin 31.1 pg Mean Corpuscular Hemoglobin Concent 33.9 g/dl RDW Standard Deviation 48.3 fL RDW Coefficient of Variation 14.5 % Platelet Count 210 K/uL Mean Platelet Volume 11.3 fL Prothrombin Time 9.6 SECONDS Prothromb Time International Ratio 0.9 Activated Partial Thromboplast Time 25.7 SECONDS 38.3 SECONDS Partial Thromboplastin Ratio 1.0 1.5 Sodium Level 143 mmol/L Potassium Level 3.5 mmol/L Chloride Level 110 mmol/L Carbon Dioxide Level 25 mmol/L Anion Gap 8.0 mmol/L Blood Urea Nitrogen 18 mg/dl Creatinine 0.77 mg/dl Est Creatinine Clear Calc Drug Dose 61.0 ml/min Estimated GFR () 94.6 Estimated GFR (Non- 81.6 BUN/Creatinine Ratio 22.8 Random Glucose 99 mg/dl Calcium Level 9.3 mg/dl Magnesium Level 2.0 mg/dl Total Bilirubin 0.3 mg/dl Aspartate Amino Transf (AST/SGOT) 59 U/L Alanine Aminotransferase (ALT/SGPT) 25 U/L Alkaline Phosphatase 129 U/L Troponin I 4.890 ng/ml 7.190 ng/ml Total Protein 7.7 gm/dl Albumin 3.8 gm/dl Globulin 3.9 gm/dl Albumin/Globulin Ratio 1.0 Lipase 148 U/L Bedside Troponin I 3.530 ng/ml Test 02/28/18 00:52 02/28/18 06:32 Troponin I 10.600 ng/ml 7.950 ng/ml Activated Partial Thromboplast Time 92.8 SECONDS Partial Thromboplastin Ratio 3.6 Triglycerides Level 130 mg/dl Cholesterol Level 201 mg/dl HDL Cholesterol 50 mg/dl LDL Cholesterol, Calculated 125 mg/dl VLDL Cholesterol, Calculated 26 mg/dl Cholesterol/HDL Ratio 4.0 Assessment and Plan 62 y/o F admitted on February 27, 2018 because of non-STEMI with intermittent CP 4 days Hx HTN, HLD, smoker, psoriatic arthritis and tobacco abuse disorder NSTEMI , troponin peaked at 10.6 has trends down Continue heparin, ASA. Continue beta-marv, start statin, talk to coat feller, plan n.p.o. midnight and cardiac cath tomorrow Accelerated hypertension, continue beta-marv, lisinopril, and metoprolol IV as needed Tobacco abuse disorder, consequent smoking, nicotine patch ordered, Psoriatic arthritis, continue current medication Minimal elevated LFTs , continue follow-up Full code - Heparin prophylaxis I discussed with patient and patient's family about patient's conditions, I told them patient's condition is guarded, I answered all questions to their satisfactions. The patient and family had multiple questions which were answered to their full satisfaction. Continued [facility] stay due to: multiple IV medications needed Discharge planning: home
[2018-02-28] MEDS ORDERED: ATORVASTATIN 10 MG TAB PO ONE (12:45)
[2018-02-28 14:12] LABS: PTT PATIENT 51.7 SECONDS (21.0-31.0)
[2018-02-28] MEDS ORDERED: NITROGLYCERIN 2% OINTMENT 30GM TUBE EXT ONE (14:20)
[2018-02-28] MEDS: METOPROLOL SUCC 25MG EXT REL TAB PO SCH (20:57)
[2018-02-28] MEDS: ROSUVASTATIN CALCIUM 20 MG TAB PO SCH (20:58)
[2018-02-28] MEDS: CHOLECALCIFEROL 1000 INTER.UNIT TAB PO SCH (20:59)
[2018-03-01] VITALS (13 sets, daily range): BP systolic 119–163; BP diastolic 70–91; PULSE 76–95; TEMP 36.4–37; O2SAT 93–97
[2018-03-01 06:47] LABS: PTT PATIENT 54.2 SECONDS (21.0-31.0)
[2018-03-01 07:05] LABS: ALBUMIN 3.1 gm/dl (3.4-5.0); TOTAL PROTEIN 6.5 gm/dl (6.4-8.2)
[2018-03-01] MEDS: NICOTINE 21 MG/24 HR TDSY EXT SCH (07:43)
[2018-03-01] MEDS: ASPIRIN 81 MG ECTAB PO SCH (07:45)
[2018-03-01] MEDS: SULFASALAZINE 500 MG TABEC PO SCH ×2 (07:48→20:11)
[2018-03-01] MEDS: CHOLECALCIFEROL 1000 INTER.UNIT TAB PO SCH ×2 (07:49→20:13)
[2018-03-01] MEDS ORDERED: LISINOPRIL 5 MG TAB PO SCH (09:00)
[2018-03-01] MEDS ORDERED: ATORVASTATIN 20 MG TAB PO SCH (09:00)
--- NOTE | 2018-03-01 09:45 | Progress Note ---
Subjective Date of Service: Mar 01, 2018. Subjective Pt evaluation today including: conversation w/ patient, conversation w/ family ( at bedside), physical exam, lab review, conversation w/ construction consultant, review of inpatient medication list Pain: no chest pain PO Intake: NPO for cath Voiding: no voiding problems patient feeling well, anxious about going for heart cath, wants to know what time it will be no chest pain or pressure, troponin trending down at 7 from 10 reviewed prior labs and cardiology consultation, plan for [facility] today BP reasonably controlled at 144/81 heart cath showed severe CAD with 99% occlusion in left circumflex, PCI successful Problem List Medical Problems: (1) Acute electrocardiogram changes Status: Acute (2) Acute [place] Status: Acute (3) Tachycardia Status: Acute Review of Systems Psychiatric: + anxiety All Other Systems: Reviewed and Negative Medications Current Inpatient Medications Medications (Trade) Dose Ordered Sig/Lena Route Start Time Stop Time Status Last Admin Dose Admin Acetaminophen (Tylenol Tab) 650 mg Q4H PRN PO 02/27/18 17:15 03/29/18 17:14 Al Hydrox/Mg Hydrox/Simethicone (Maalox Max Susp) 15 ml Q4H PRN PO 02/27/18 17:15 03/29/18 17:14 Magnesium Hydroxide (Milk Of Magnesia Susp) 30 ml Q12H PRN PO 02/27/18 17:15 03/29/18 17:14 Zolpidem Tartrate (Ambien Tab) 5 mg HSZ PRN PO 02/27/18 17:15 03/29/18 17:14 Ondansetron HCl (Zofran Inj) 4 mg Q6H PRN IV 02/27/18 17:15 03/29/18 17:14 Nitroglycerin (Nitrostat Tab) 0.4 mg UD PRN SL 02/27/18 17:15 03/29/18 17:14 Morphine Sulfate (MoRPHine SULFATE INJ) 2 mg Q30M PRN IV 02/27/18 17:15 03/13/18 17:14 Polyethylene (Miralax Powder Packet) 17 gm DAILY PRN PO 02/27/18 17:15 03/29/18 17:14 Aspirin (Ecotrin Tab) 81 mg QAM PO 02/28/18 09:00 03/30/18 08:59 03/01/18 07:45 81 MG Hydralazine HCl (HydrALAZINE INJ) 2.5 mg Q6H PRN IV. 02/27/18 17:30 03/29/18 17:29 02/28/18 11:47 2.5 MG Heparin Sodium/ Dextrose 500 ml @ 21 mls/hr [id number] IV 02/27/18 17:45 03/29/18 17:44 02/28/18 15:38 21 MLS/HR Metoprolol Tartrate (Lopressor Iv) 2.5 mg Q6 PRN IV 02/27/18 18:00 03/29/18 17:59 02/27/18 20:35 2.5 MG Sulfasalazine (Azulfidine Delayed Rel Tab) 500 mg BID PO 02/27/18 21:00 03/29/18 20:59 03/01/18 07:48 500 MG Folic Acid (Folvite Tab) 1 mg QAM PO 02/28/18 09:00 03/30/18 08:59 03/01/18 07:47 1 MG Metoprolol Succinate (Toprol Xl Tab) 75 mg QPM PO 02/27/18 21:00 03/29/18 20:59 02/28/18 20:57 75 MG Nicotine (Nicoderm Cq 21MG Patch) 1 patch QAM EXT 02/28/18 10:15 03/30/18 10:14 03/01/18 07:43 1 PATCH Miscellaneous (Remove Nicoderm Patch) 1 ea QAM N/A 03/01/18 09:00 03/31/18 08:59 03/01/18 07:43 1 EA Cholecalciferol (Vitamin D Tab) 1,000 inter.unit BID PO 02/28/18 21:00 03/30/18 20:59 03/01/18 07:49 1,000 INTER.UNIT Rosuvastatin Calcium (Crestor Tab) 20 mg HS PO 02/28/18 21:00 03/30/18 20:59 02/28/18 20:58 20 MG Lisinopril (Zestril Tab) 5 mg QAM PO 03/01/18 09:00 03/31/18 08:59 03/01/18 07:44 5 MG Non-Formulary Medication (Non-Formulary Patient'S Own Med) 1 ea HS PRN PO 02/28/18 10:15 03/30/18 10:14 Objective Vital Signs Date Time Temp Pulse Resp B/P (MAP) Pulse Ox O2 Delivery O2 Flow Rate FiO2 03/01/18 08:00 Room Air 03/01/18 06:54 36.7 80 18 144/81 (102) 96 Room Air 03/01/18 04:05 37.0 95 18 157/76 (103) 95 Room Air 03/01/18 00:17 37.0 87 19 145/87 (106) 95 Room Air 02/28/18 20:00 Room Air 02/28/18 19:31 36.7 81 20 159/89 (112) 96 Room Air 02/28/18 15:23 36.7 82 20 131/84 (100) 97 Room Air 02/28/18 14:10 81 126/75 (92) 96 Room Air 02/28/18 12:33 89 148/79 (102) 02/28/18 11:53 36.9 101 20 169/101 (123) 97 Room Air 174/103 (126) Physical Exam General Appearance: WD/WN, no apparent distress Eyes: normal inspection, EOMI, sclerae normal ENT: normal ENT inspection, hearing grossly normal, pharynx normal Neck: supple, no adenopathy, no JVD, trachea midline Respiratory/Chest: chest non-tender, lungs clear, normal breath sounds, no respiratory distress, no accessory muscle use Cardiovascular: regular rate, rhythm, no edema, no gallop, no JVD, no murmur Abdomen: normal bowel sounds, non tender, soft, no organomegaly Extremities: normal range of motion, non-tender, normal inspection, no pedal edema, no calf tenderness, pelvis stable Neurologic/Psychiatric: toilet attendant II-XII nml as tested, no motor/sensory deficits, alert, normal mood/affect, oriented x 3 Skin: normal color, warm/dry, no rash Laboratory Results Last 24 Hours Test 02/28/18 13:17 03/01/18 06:21 Activated Partial Thromboplast Time 51.7 SECONDS 54.2 SECONDS Partial Thromboplastin Ratio 2.0 2.1 Total Bilirubin 0.4 mg/dl Direct Bilirubin 0.1 mg/dl Aspartate Amino Transf (AST/SGOT) 36 U/L Alanine Aminotransferase (ALT/SGPT) 20 U/L Alkaline Phosphatase 106 U/L Total Protein 6.5 gm/dl Albumin 3.1 gm/dl Assessment and Plan 62 y/o F admitted on February 27, 2018 because of non-STEMI with intermittent CP 4 days Hx HTN, HLD, smoker, psoriatic arthritis and tobacco abuse disorder - NSTEMI: no chest pain currently, troponin peaked at 10, trended down to 7 continue Toprol, aspirin, heparin drip, Crestor, lisinopril [facility] today: severe CAD with 99% lesion in left circumflex, successful PCI with ANGEL Plavix started for DAPT observe overnight, likely home tomorrow - Dyslipidemia: LDL high at 125, continue Crestor 20mg daily - HTN: continue Toprol and Lisinopril, adjust as needed, BP 144/81 this morning - Tobacco abuse: nicotine patch, educated on stopping - Psoriatic arthritis, chronic and stable DVT proph: on heparin drip Continued [facility] stay due to: multiple IV medications needed Discharge planning: home
--- NOTE | 2018-03-01 09:52 | Cardiology Follow-Up ---
Subjective Date of Service: Mar 01, 2018. Pt evaluation today including: conversation w/ patient, conversation w/ family , physical exam, chart review, lab review, review of inpatient medication list History of Present Illness Mrs Mckay is a very pleasant 62-year-old female with a history significant for hypertension, dyslipidemia, and tobacco abuse. She was admitted to [facility] on 02/27/2018 with NSTEMI. Yesterday, she did have 1 episode of left arm discomfort that lasted approximately 1-3 minutes. It spontaneously resolved. She has not had any further chest discomfort. She denies shortness of breath, syncope, near-syncope , palpitations, edema, or bleeding such as melena, hematochezia, or hematuria. She admitted today that she is anxious about taking more medications, and is looking for to being discharged. Medications Current Inpatient Medications Medications (Trade) Dose Ordered Sig/Lena Route Start Time Stop Time Status Last Admin Dose Admin Acetaminophen (Tylenol Tab) 650 mg Q4H PRN PO 02/27/18 17:15 03/29/18 17:14 Al Hydrox/Mg Hydrox/Simethicone (Maalox Max Susp) 15 ml Q4H PRN PO 02/27/18 17:15 03/29/18 17:14 Magnesium Hydroxide (Milk Of Magnesia Susp) 30 ml Q12H PRN PO 02/27/18 17:15 03/29/18 17:14 Zolpidem Tartrate (Ambien Tab) 5 mg HSZ PRN PO 02/27/18 17:15 03/29/18 17:14 Ondansetron HCl (Zofran Inj) 4 mg Q6H PRN IV 02/27/18 17:15 03/29/18 17:14 Nitroglycerin (Nitrostat Tab) 0.4 mg UD PRN SL 02/27/18 17:15 03/29/18 17:14 Morphine Sulfate (MoRPHine SULFATE INJ) 2 mg Q30M PRN IV 02/27/18 17:15 03/13/18 17:14 Polyethylene (Miralax Powder Packet) 17 gm DAILY PRN PO 02/27/18 17:15 03/29/18 17:14 Aspirin (Ecotrin Tab) 81 mg QAM PO 02/28/18 09:00 03/30/18 08:59 03/01/18 07:45 81 MG Hydralazine HCl (HydrALAZINE INJ) 2.5 mg Q6H PRN IV. 02/27/18 17:30 03/29/18 17:29 02/28/18 11:47 2.5 MG Heparin Sodium/ Dextrose 500 ml @ 21 mls/hr [id number] IV 02/27/18 17:45 03/29/18 17:44 02/28/18 15:38 21 MLS/HR Metoprolol Tartrate (Lopressor Iv) 2.5 mg Q6 PRN IV 02/27/18 18:00 03/29/18 17:59 02/27/18 20:35 2.5 MG Sulfasalazine (Azulfidine Delayed Rel Tab) 500 mg BID PO 02/27/18 21:00 03/29/18 20:59 03/01/18 07:48 500 MG Folic Acid (Folvite Tab) 1 mg QAM PO 02/28/18 09:00 03/30/18 08:59 03/01/18 07:47 1 MG Metoprolol Succinate (Toprol Xl Tab) 75 mg QPM PO 02/27/18 21:00 03/29/18 20:59 02/28/18 20:57 75 MG Nicotine (Nicoderm Cq 21MG Patch) 1 patch QAM EXT 02/28/18 10:15 03/30/18 10:14 03/01/18 07:43 1 PATCH Miscellaneous (Remove Nicoderm Patch) 1 ea QAM N/A 03/01/18 09:00 03/31/18 08:59 03/01/18 07:43 1 EA Cholecalciferol (Vitamin D Tab) 1,000 inter.unit BID PO 02/28/18 21:00 03/30/18 20:59 03/01/18 07:49 1,000 INTER.UNIT Rosuvastatin Calcium (Crestor Tab) 20 mg HS PO 02/28/18 21:00 03/30/18 20:59 02/28/18 20:58 20 MG Lisinopril (Zestril Tab) 5 mg QAM PO 03/01/18 09:00 03/31/18 08:59 03/01/18 07:44 5 MG Non-Formulary Medication (Non-Formulary Patient'S Own Med) 1 ea HS PRN PO 02/28/18 10:15 03/30/18 10:14 Objective Vital Signs Past 12 Hours Date Time Temp Pulse Resp B/P (MAP) Pulse Ox O2 Delivery O2 Flow Rate FiO2 03/01/18 08:00 Room Air 03/01/18 06:54 36.7 80 18 144/81 (102) 96 Room Air 03/01/18 04:05 37.0 95 18 157/76 (103) 95 Room Air 03/01/18 00:17 37.0 87 19 145/87 (106) 95 Room Air Last Recorded Weight-Kilograms: 57.800 Intake & Output 02/28/18 03/01/18 03/02/18 08:00 08:00 08:00 Intake Total 1391 ml 2415 ml Balance 1391 ml 2415 ml Physical Exam Gen.: No acute distress. Alert and oriented. HEENT: Anicteric sclera. Neck: No JVD. Cardiac: No ventricular heave. Regular. No ectopy. Normal S1-S2. No murmurs, rubs, or gallops. Pulmonary: Clear to auscultation bilaterally without wheezes, rales, or rhonchi. Abdomen: Soft, nontender, nondistended, with normoactive bowel sounds. No bruits noted. Extremities: No edema or cyanosis. Psychiatric: Affect appears appropriate. Data Laboratory Results: Last 24 Hours Test 02/28/18 13:17 03/01/18 06:21 Activated Partial Thromboplast Time 51.7 SECONDS 54.2 SECONDS Partial Thromboplastin Ratio 2.0 2.1 Total Bilirubin 0.4 mg/dl Direct Bilirubin 0.1 mg/dl Aspartate Amino Transf (AST/SGOT) 36 U/L Alanine Aminotransferase (ALT/SGPT) 20 U/L Alkaline Phosphatase 106 U/L Total Protein 6.5 gm/dl Albumin 3.1 gm/dl Telemetry personally reviewed: Sinus rhythm with five-beat run of ventricular tachycardia in the past 24 hours. No sustained arrhythmia. Chart reviewed. Assessment and Plan ASSESSMENT/PLAN: 1. NSTEMI: She had 1 episode of left arm pain yesterday that was self limited. No further chest discomfort. Continue heparin drip. Continue aspirin 81 mg daily. Continue beta-marv, William inhibitor, and high-intensity statin therapy. We discussed the fact that if she receives PCI, she would require dual anti-platelet therapy for 1 year. She is agreeable. Coronary angiography is pending later today. 2. Hypertension: Blood pressure remains elevated for the most part. WILLIAM- inhibitor was started yesterday. This can be titrated as necessary. 3. Dyslipidemia: Continue high-intensity statin therapy. She did not tolerate some statin therapy in the past, likely simvastatin according to family. She received Crestor last night and primary service also ordered atorvastatin. Atorvastatin discontinued. 4. Tobacco abuse: Smoking cessation has been recommended. 5. Mitral regurgitation: Non severe. Can follow over time. Could be ischemic in nature as well. 6. Sinus pause: She had sinus pause shortly after receiving IV metoprolol on the day of admission. No further episodes. Could consider titrating beta- marv in the future as well for hypertension if no further pauses. 7. Disposition: Cardiology will continue to follow. Continue telemetry. Continue NPO.
--- NOTE | 2018-03-01 09:53 | Pre Sedation Assessment ---
Pre Sedation Assessment General Date of Sedation: Mar 01, 2018. Vital Signs Past 12 Hours Date Time Temp Pulse Resp B/P (MAP) Pulse Ox O2 Delivery O2 Flow Rate FiO2 03/01/18 08:00 Room Air 03/01/18 06:54 36.7 80 18 144/81 (102) 96 Room Air 03/01/18 04:05 37.0 95 18 157/76 (103) 95 Room Air 03/01/18 00:17 37.0 87 19 145/87 (106) 95 Room Air Review Cardiovascular: regular rate, rhythm, no murmur Lungs: lungs clear Pre-Sedation Airway Assessment Oral Cavity: Dentures Mallampati Classification: Class III ASA Classification: Class III NPO Status Date of Last Intake of Fluids: Feb 28, 2018 Time of Last Intake of Fluids: 18:00 Date of Last Intake of Solids: Feb 28, 2018 Time of Last Intake of Solids: 18:00 Procedure Planning Contraindications for Sedation: None Current Medications Reviewed: Yes Notes The planned sedation has been discussed with the patient. Informed Consent was obtained. I have identified the patient, determined the appropriateness of sedation and have assessed the patient immediately prior to the procedure. All medicine(s) and interventions are by my order.
[2018-03-01] MEDS ORDERED: MIDAZOLAM HCL 1 MG/ML 2ML VIAL ONE ×2 (11:13→12:30)
[2018-03-01] MEDS ORDERED: NITROGLYCERIN/D5W 100MCG/ML 20ML SYR ONE (11:13)
[2018-03-01] MEDS ORDERED: FENTANYL CITRATE INJ 50 MCG/1 ML 2 ML VIAL ONE (11:13)
[2018-03-01] MEDS ORDERED: NiCARDipine HCL INJ 2.5 MG/ML 10 ML AMP ONE (11:13)
[2018-03-01] MEDS ORDERED: HEPARIN SOD (PORCINE) 1000 UNIT/ML 10 ML VIAL ONE (11:13)
--- NOTE | 2018-03-01 12:45 | Cardiac Catheterization ---
Procedure Note Procedure Date Mar 01, 2018. Pre-Procedure Diagnosis Non STEMI AUC Score 9 Post-Procedure Diagnosis Severe CAD, Normal Intracardiac Pressures Procedure(s) Performed Coronary Angiography, Left Heart Cath Presentation Designer Dr. Camilo Wafer Substrate Tester(s) Glunt Estimated Blood Loss < 20 ml Medication(s) Fentanyl, Heparin, Nicardipine, Versed, Lidocaine 1% Summary of Findings Coronary angiography: 1. Left main coronary artery: The LMCA is large in caliber. No significant CAD. 2. Left anterior descending: The LAD is a large caliber vessel that extends to the apex. Late mid LAD 20%. Medium caliber D1, D2, D3, and D4 vessels. No significant CAD within the diagonal vessels. 3. Circumflex: The circumflex is a large caliber vessel. Mid circumflex 95% with NISH 3 flow. Small OM1 and large OM2 without significant CAD. 4. Right coronary artery: The RCA is large and dominant. No significant CAD within the RCA, PDA, or PL branch. Left heart catheterization: 1. Left ventriculography was not performed. 2. No aortic stenosis. 3. Normal LVEDP; 7mmHg. Sedation start time: 12:08 p.m. Sedation end time: 12:29 p.m. Procedural details: 1. Coronary angiography was performed via the right radial artery without known complication with 6 Nepali JL 3.5 and JR4 diagnostic catheters. Impression: 1. Severe CAD involving the mid circumflex. 2. Mild nonobstructive CAD involving LAD. 3. No aortic stenosis. 4. Normal LVEDP. Plan: 1. Dr. Evangelista of intervention cardiology was asked to review images and plans on PCI of mid circumflex. Hemodynamics Rest Ao: 134/64 Final Ao: 134/65 LV: 118/0/7 Recommendations PCI without planned CABG Specimens None Radiation Exposure (mGy) 458 mGy. Fluoro time 2 min. Contrast (mls) 35 ml Optiray Procedural Complication(s) None Disposition Central Office Supervisor Holding/Recovery (Remains in radiographer cardiac catheterization for PCI of circumflex.) [facility] Data Cardiac Status Clinical evaluation leading to the procedure CAD Presntation: Non STEMI Anginal Classification: CCS IV Heart Failure: No Cardiogenic Shock w/in 24Hrs: No Cardiac Arrest w/in 24Hrs: No Imaging studies past 6 months: Yes (echo) Stress studies past 6 months: No Standard Exercise Stress Test: No Stress Echocardiogram: No Stress Testing w/SPECT MPI: No Cardiac CTA: No Coronary Anatomy Dominant: Right Left Main (% Stenosis): Normal LAD (% Stenosis): Mid (20%) D1 (% Stenosis): Normal D2 (% Stenosis): Normal D3 (% Stenosis): Normal Circumflex (% Stenosis): Mid (95%) OM1 (% Stenosis): Normal OM2 (% Stenosis): Normal RCA (% Stenosis): Normal R PDA (% Stenosis): Normal R PL1 (% Stenosis): Normal Left Ventricular Angiography EF (%): n/a Diagnostic Physician's Name: Artie Camilo MD Status: Elective Closure Device Percutaneous Entry Location: Radial Closure Device: Radial Band Recommendations: PCI without planned CABG
[2018-03-01] MEDS ORDERED: CLOPIDOGREL BISULFATE 300 MG TAB PO ONE (12:56)
--- NOTE | 2018-03-01 12:58 | Post Sedation Assessment ---
Post Sedation Assessment General Date of Sedation Mar 01, 2018. Vital Signs: Vital Signs Past 12 Hours Date Time Temp Pulse Resp B/P (MAP) Pulse Ox O2 Delivery O2 Flow Rate FiO2 03/01/18 08:00 Room Air 03/01/18 06:54 36.7 80 18 144/81 (102) 96 Room Air 03/01/18 04:05 37.0 95 18 157/76 (103) 95 Room Air Post Procedure Recovery Score Activity: (2) Moves 4 extremities * Respiration: (2) Deep breath/cough Circulation: (2) +/-20% PreAnes Value Consciousness: (2) Fully Awake Oxygen Saturation: (1) O2 needed for >90% Post Anesthesia Score: 9 Discharge Sedation Level of Care: Fast Track Phase II Post Sedation Plan On clinical assessment, the patient appears to have tolerated the sedation without complications. Patient is recovering as anticipated. Patient will continue to be monitored by nursing and may be discharged when sedation discharge criteria are met per below protocol. Upon Completions of procedure and additional 15 minutes continue every 5 minute vital signs and the P.A.R. score; then discharge to a Phase I or Fast Track to Phase II per the following guidelines: * Discharge Patient to appropriate Phase II area if PAR is 8 or greater or return to pre- procedure baseline. The post - procedure orders will be as directed. * If PAR score is less than 8 or not return to pre-procedure baseline then patient will follow Phase I monitoring till PAR is reached for Phase II. The Phase I may be done in procedure room or may call to secure a Phase I area. * If naloxone or flumazenil are used for reversal, hold in Phase I for an additional 60 -120 minutes before discharge to Phase II. Please call the Sedation Physician to re-evaluate and complete post-note for discharge to Phase II area. Do NOT discharge from procedure sedation or Phase 1 until post- sedation evaluation note is complete by procedure /sedation MD Sedation Discharge Instructions to be given to the patient at discharge to home.
--- NOTE | 2018-03-01 13:03 | Cardiac Catheterization ---
Procedure Note Procedure Date Mar 01, 2018. Pre-Procedure Diagnosis Non STEMI AUC Score 8 Post-Procedure Diagnosis Severe CAD, Successful PCI Procedure(s) Performed Drug Eluting Stent Field Support Specialist Jean Carlos V Belt Skiver(s) Glunt Estimated Blood Loss <10 Medication(s) Clopidogrel, Fentanyl, Heparin, Nicardipine, Nitroglycerin, Versed, Lidocaine 1% Summary of Findings Indication: High-risk NSTEMI Access: 6Fr right radial artery Catheters: EBU 3.5 guide Findings: For full details of patient's coronary angiography please cath report dictated by Dr. Camilo. Briefly, patient found to have severe single vessel disease with a 99% stenosis involving the mid circumflex. Decision to proceed with PCI. -- PCI -- Antithrombotic therapy: Heparin, Clopidogrel Procedure: LM cannulated with EBU 3.5 guide BMW wire passed across lesion into distal vessel Mid circumflex lesion predilated with 2.5 compliant balloon Dilated lesion stented with 3.0 x 15 Xience ANGEL Stent post-dilated with 3.25 noncompliant balloon IC vasodilators administered for spasm Post procedure NISH 3 flow, stent well expanded with minimal residual stenosis and no apparent cardiac complications. Arterial Closure: TR Band Summary: 1. Severe single vessel coronary artery disease - 99% mid circumflex 2. . Successful PCI of mid circumflex with single drug-eluting stent (3.0 x 15 Xience, post-dilated with 3.25 NC). Recommendations: To PCU for continued monitoring Loaded with Clopidogrel 600mg in research laboratory specialist Continue dual-antiplatelet therapy for at least 1 year Continue statin, and ASCVD risk factor modification Consult cardiac Rehab Hemodynamics Rest Ao: 134/64/94 Final Ao: 124/69/95 LV: 118/23 Recommendations PCI without planned CABG Specimens None Radiation Exposure (mGy) 1676 Contrast (mls) 120 Opti Fluids (cc crystalloids) 118 NSS Drains none Anesthesia moderate Procedural Complication(s) None Disposition PCU [facility] Data Cardiac Status Clinical evaluation leading to the procedure CAD Presntation: Non STEMI Anginal Classification: CCS IV Heart Failure: No, NYHA Class: CCS I Cardiogenic Shock w/in 24Hrs: No Cardiac Arrest w/in 24Hrs: No Imaging studies past 6 months: Yes Stress studies past 6 months: No Diagnostic Physician's Name: Artie Camilo MD Status: Elective Closure Device Percutaneous Entry Location: Radial Closure Device: Radial Band Recommendations: PCI without planned CABG PCI Indication: PCI for high risk Non-STEMI Lesion Segment Name: Mid circumflex Culprit Artery: Yes Stenosis Prior to Rx (%): 99 Chronic Total Occlusion: No IVUS: No Pre-Procedure NISH Flow: 3 Previously Treated Lesion: No Lesion Complexity: Non-High/Non-C Lesion Length (mm): 12 Thrombus Present: Yes Bifurcation Lesion: No Guidewire Across Lesion: Yes Guidewire: Stenosis Post-Procedure (%): 0 Post-Procedure NISH Flow: 3 Device(s) Deployed: No Intraprocedure Events Significant Dissection: No Perforation: No
[2018-03-01] MEDS ORDERED: SODIUM CHLORIDE 0.9% 1000ML 1,000 ML IV SCH (13:15)
[2018-03-01] MEDS ORDERED: NITROGLYCERIN 0.4 MG SL PER TAB CHARGE SL PRN (13:15)
[2018-03-01] MEDS: ROSUVASTATIN CALCIUM 20 MG TAB PO SCH (20:10)
[2018-03-01] MEDS: METOPROLOL SUCC 25MG EXT REL TAB PO SCH (20:10)
[2018-03-02 03:54] VITALS: BP 157/77; PULSE 89; TEMP 36.8; O2SAT 93
--- NOTE | 2018-03-02 06:54 | Consultant Recommendations ---
Cereal Maker Recommendations Date of Service Mar 02, 2018. Cereal Maker Recommendations ACTIVITY RECOMMENDATIONS: Excess manipulation of the wrist should be avoided for the next 24-48 hours. * No lifting over 2 pounds (approximately a 1/2 gallon of milk) with the utilized arm for 24 hours. * No strenuous activity such as bowling or tennis for 3 days. * Keep the site of the procedure covered with a bandage for 24 hours. *You may shower the day after the procedure. Do not take a tub bath or submerge the puncture site in water for the next 3 days. *Do not operate any motorized equipment for 3 days. SPECIAL CARE INSTRUCTIONS: The site may be slightly bruised and sore following your procedure. Should any of the following occur, contact the Dr. who performed your procedure. 1. Redness/inflammation, swelling, chills, or fever, or colored drainage at procedure site within 3-7 days after your procedure. 2. Coldness, discoloration, ongoing numbness, severe pain, or swelling. Expect mild tingling of hand and tenderness at the puncture site for up to three days. If this persists beyond three days, or other symptoms develop, notify the Dr. who performed your procedure. BLEEDING: If the procedure site on your wrist begins to bleed, do not panic 1. Place 1 or 2 fingers firmly just slightly above the insertion site to stop the bleeding. You may be able to feel your pulse as you hold pressure. 2. Lift your finger after 5 minutes to see if the bleeding has stopped. 3. Once the bleeding has stopped, gently wipe the wrist area clean with a bandage. * If the bleeding from your wrist does not stop after 10 minutes, or if there is a large amount of bleeding or spurting, call 911 (do not drive yourself to the hospital). SKIN IRRITATION: * You may experience some redness and/or swelling in the area where radiation was administered. If any skin irritation occurs, please contact your family physician. FOLLOW UP VISIT: Keep any scheduled doctor appointments.
[2018-03-02 07:03] LABS: HEMOGLOBIN 12.6 g/dL (12.0-16.0); MEAN CELL VOLUME 90.7 fL (80-100); MEAN CORPUSCULAR HEMOGLOBIN 30.9 pg (25-34); MEAN CORPUSCULAR HGB CONC 34.1 g/dl (32-36); MEAN PLATELET VOLUME 11.5 fL (7.4-10.4); PLATELET COUNT 164 K/uL (130-400); RED CELL DISTRIBUTION WIDTH CV 14.5 % (11.5-14.5); RED CELL DISTRIBUTION WIDTH SD 48.3 fL (36.4-46.3); WHITE BLOOD COUNT 9.22 K/uL (4.8-10.8)
[2018-03-02 07:13] LABS: PTT PATIENT 24.5 SECONDS (21.0-31.0)
[2018-03-02 07:33] VITALS: BP 152/85; PULSE 91; TEMP 36.8; O2SAT 95
[2018-03-02] MEDS: ASPIRIN 81 MG ECTAB PO SCH (07:36)
[2018-03-02] MEDS: CHOLECALCIFEROL 1000 INTER.UNIT TAB PO SCH (07:37)
[2018-03-02] MEDS: SULFASALAZINE 500 MG TABEC PO SCH (07:38)
[2018-03-02] MEDS: NICOTINE 21 MG/24 HR TDSY EXT SCH (07:40)
--- NOTE | 2018-03-02 08:00 | Cardiology Follow-Up ---
Subjective Date of Service: Mar 02, 2018. Pt evaluation today including: conversation w/ patient, conversation w/ family , physical exam, chart review, lab review, review of studies, review of inpatient medication list, conversation w/ attending History of Present Illness Mrs Mckay is a very pleasant 62-year-old female with a history significant for hypertension, dyslipidemia, and tobacco abuse. She was admitted to [facility] on 02/27/2018 with NSTEMI. Yesterday, she underwent coronary angiography and was found to have severe mid circumflex CAD. She underwent PCI with drug-eluting stent. She tolerated the procedure well via radial approach. She has not had any further angina, left arm pain, shortness of breath. She denies syncope, near-syncope, palpitations, edema, or bleeding such as melena, hematochezia, or hematuria. She has not yet ambulated in the hallway but has ambulated in her room and has tolerated it well. She states that she feels much better following PCI. She was very appreciative and stated for the first time that she will make an effort to quit smoking or at least cut back. Review of systems: As above. Medications Current Inpatient Medications Medications (Trade) Dose Ordered Sig/Lena Route Start Time Stop Time Status Last Admin Dose Admin Acetaminophen (Tylenol Tab) 650 mg Q4H PRN PO 02/27/18 17:15 03/29/18 17:14 Al Hydrox/Mg Hydrox/Simethicone (Maalox Max Susp) 15 ml Q4H PRN PO 02/27/18 17:15 03/29/18 17:14 Magnesium Hydroxide (Milk Of Magnesia Susp) 30 ml Q12H PRN PO 02/27/18 17:15 03/29/18 17:14 Zolpidem Tartrate (Ambien Tab) 5 mg HSZ PRN PO 02/27/18 17:15 03/29/18 17:14 Ondansetron HCl (Zofran Inj) 4 mg Q6H PRN IV 02/27/18 17:15 03/29/18 17:14 Nitroglycerin (Nitrostat Tab) 0.4 mg UD PRN SL 02/27/18 17:15 03/29/18 17:14 Morphine Sulfate (MoRPHine SULFATE INJ) 2 mg Q30M PRN IV 02/27/18 17:15 03/13/18 17:14 Polyethylene (Miralax Powder Packet) 17 gm DAILY PRN PO 02/27/18 17:15 03/29/18 17:14 Aspirin (Ecotrin Tab) 81 mg QAM PO 02/28/18 09:00 03/30/18 08:59 03/01/18 07:45 81 MG Hydralazine HCl (HydrALAZINE INJ) 2.5 mg Q6H PRN IV. 02/27/18 17:30 03/29/18 17:29 02/28/18 11:47 2.5 MG Metoprolol Tartrate (Lopressor Iv) 2.5 mg Q6 PRN IV 02/27/18 18:00 03/29/18 17:59 02/27/18 20:35 2.5 MG Sulfasalazine (Azulfidine Delayed Rel Tab) 500 mg BID PO 02/27/18 21:00 03/29/18 20:59 03/01/18 20:11 500 MG Folic Acid (Folvite Tab) 1 mg QAM PO 02/28/18 09:00 03/30/18 08:59 03/01/18 07:47 1 MG Nicotine (Nicoderm Cq 21MG Patch) 1 patch QAM EXT 02/28/18 10:15 03/30/18 10:14 03/01/18 07:43 1 PATCH Miscellaneous (Remove Nicoderm Patch) 1 ea QAM N/A 03/01/18 09:00 03/31/18 08:59 03/01/18 07:43 1 EA Cholecalciferol (Vitamin D Tab) 1,000 inter.unit BID PO 02/28/18 21:00 03/30/18 20:59 03/01/18 20:13 1,000 INTER.UNIT Rosuvastatin Calcium (Crestor Tab) 20 mg HS PO 02/28/18 21:00 03/30/18 20:59 03/01/18 20:10 20 MG Non-Formulary Medication (Non-Formulary Patient'S Own Med) 1 ea HS PRN PO 02/28/18 10:15 03/30/18 10:14 Nitroglycerin (Nitrostat Tab) 0.4 mg UD PRN SL 03/01/18 13:15 03/31/18 13:14 Clopidogrel Bisulfate (plAVix TAB) 75 mg QAM PO 03/02/18 09:00 04/01/18 08:59 Lisinopril (Zestril Tab) 10 mg QAM PO 03/02/18 09:00 03/31/18 08:59 Metoprolol Succinate (Toprol Xl Tab) 100 mg QPM PO 03/02/18 21:00 03/29/18 20:59 Objective Vital Signs Past 12 Hours Date Time Temp Pulse Resp B/P (MAP) Pulse Ox O2 Delivery O2 Flow Rate FiO2 03/02/18 07:33 36.8 91 95 152/85 (107) 95 Room Air 03/02/18 03:54 36.8 89 16 157/77 (103) 93 Room Air 03/01/18 23:34 36.9 81 18 156/83 (107) 94 Room Air 03/01/18 20:00 Room Air Last Recorded Weight-Kilograms: 57.800 Physical Exam Gen.: No acute distress. Alert and oriented. HEENT: Anicteric sclera. Neck: No JVD. Cardiac: No ventricular heave. Regular. No ectopy. Normal S1-S2. No murmurs, rubs, or gallops. Pulmonary: Clear to auscultation bilaterally without wheezes, rales, or rhonchi. Abdomen: Soft, nontender, nondistended, with normoactive bowel sounds. No bruits noted. Extremities: Right radial cath site is clean, dry, and intact without erythema or discharge. 2+ right radial pulse. No edema or cyanosis. Psychiatric: Affect appears appropriate. Data Laboratory Results: Last 24 Hours Test 03/01/18 12:14 03/01/18 12:41 03/02/18 06:13 Kaolin Activated Coagulation Time 131 SECONDS 246 SECONDS White Blood Count 9.22 K/uL Red Blood Count 4.08 M/uL Hemoglobin 12.6 g/dL Hematocrit 37.0 % Mean Corpuscular Volume 90.7 fL Mean Corpuscular Hemoglobin 30.9 pg Mean Corpuscular Hemoglobin Concent 34.1 g/dl RDW Standard Deviation 48.3 fL RDW Coefficient of Variation 14.5 % Platelet Count 164 K/uL Mean Platelet Volume 11.5 fL Activated Partial Thromboplast Time 24.5 SECONDS Partial Thromboplastin Ratio 0.9 Telemetry personally reviewed: No arrhythmia. Sinus rhythm. Coronary angiography results reviewed.: Mid circumflex 95-99%. Underwent PCI with drug-eluting stent. 3 x 15 Xience ANGEL, post dilated with 3.25 noncompliant balloon. Assessment and Plan ASSESSMENT/PLAN: 1. NSTEMI/CAD status post circumflex PCI: No further angina. She feels much better following PCI. Cardiac rehab recommended. Continue aspirin 81 mg daily indefinitely and this was discussed with her in detail. Continue Plavix 75 mg daily for at least 1 year. This was discussed with her as well. Continue beta- marv at increased dose. Continue MARY ANNE-inhibitor and increase dose. Continue high-intensity statin therapy. Smoking cessation strongly recommended. 2. Hypertension: Blood pressure remains elevated. Increase metoprolol succinate to 100 mg daily. Increase lisinopril to 10 mg daily. 3. Dyslipidemia: Continue high-intensity statin therapy. She is tolerating it well thus far. She did not tolerate statin therapy in the past, most likely simvastatin according to family. 4. Tobacco abuse: Smoking cessation has been recommended. She appears to be somewhat more receptive this morning. 5. Mitral regurgitation: Non severe. Can follow over time. Could be ischemic in nature as well. 6. Sinus pause: This occurred shortly after IV metoprolol. There has not been any significant recurrence. 7. Ventricular tachycardia: No further episode. She had a brief run, within the first 48 hours of hospitalization. 8. Disposition: She can be discharged home from a cardiology standpoint, if she can ambulate in the hallway without symptoms. Plan of care has been communicated with Dr. Jeronimo with a primary hospitalist service. Cardiac rehabilitation recommended. Follow-up with Cardiology in 1-2 weeks. Cardiology office has been made aware and will arrange this appointment.
[2018-03-02] MEDS ORDERED: PLV75 PO (08:42)
[2018-03-02] MEDS ORDERED: NTRSLP4 SL (08:42)
[2018-03-02] MEDS ORDERED: CRS20 PO (08:42)
[2018-03-02] MEDS ORDERED: TPRSR/100 PO (08:42)
[2018-03-02] MEDS ORDERED: LSN10 PO (08:42)
[2018-03-02] MEDS ORDERED: ASPI-461 PO (08:42)
--- NOTE | 2018-03-02 08:49 | Discharge Instructions ---
Discharge Instructions Date of Service Mar 02, 2018. Admission Reason for Admission: Nstemi Discharge Discharge Diagnosis / Problem: NSTEMI (heart attack) Discharge Goals Goal(s): Improve function, Improve disease control Activity Recommendations Activity Limitations: per Instructions/Follow-up section Exercise/Sports Limitations: gradually increase as tolerated May Resume Sexual Activity: after two weeks Shower/Bathe: no limitations Driving or Machine Use: no limitations . Instructions / Follow-Up Instructions / Follow-Up Medications: - ASPIRIN: 81mg daily, take this indefinitely for rest of life - PLAVIX: 75mg daily, will need to take for one year - TOPROL: dose increased to 100mg daily - LISINOPRIL: 10mg daily, started for better blood pressure control, may need to increase further as outpatient - CRESTOR: 20mg daily for controlling cholesterol and preventing future heart attacks - NITROGLYCERIN: sublingual tablets, take as needed for chest pain - NICOTINE PATCH: follow instructions below NSTEMI (heart attack) treated with aspirin, Crestor and heparin drip initially left heart catheterization yesterday showed 99% occlusion in left circumflex , treated with drug eluting stent per cardiology, you need to take aspirin and Plavix daily to keep stent open continue Toprol at 100mg daily, Lisinopril 10mg daily, Crestor 20mg daily the above medications have been shown to prevent further heart attacks and improve heart function going forward you will follow up with Dr. Camilo in 1-2 weeks Tobacco abuse: you need to stop smoking to help prevent future heart attacks prescribed patches over the next three weeks week 1: 21mcg patch daily week 2: 14mcg patch daily week 3: 7mcg patch daily FOLLOW UP - Dr. Perez in one week, call her office for appointment - Dr. Camilo in 1-2 weeks, his office will contact you to arrange visit Current Hospital Diet Patient's current hospital diet: AHA Diet (Heart Healthy) Discharge Diet Recommended Diet: AHA Diet (Heart Healthy) Procedures Procedures Performed: left heart catheterization on 03/01, drug eluting stent placed to left circumflex Pending Studies Studies pending at discharge: no Laboratory Results Lipid Panel Test 02/28/18 06:32 Range/Units Triglycerides Level 130 0-150 mg/dl Cholesterol Level 201 H 0-200 mg/dl HDL Cholesterol 50 mg/dl Cholesterol/HDL Ratio 4.0 LDL Cholesterol, Calculated 125 mg/dl Medical Emergencies . Who to Call and When: Medical Emergencies: If at any time you feel your situation is an emergency, please call 911 immediately. . Non-Emergent Contact Non-Emergency issues call your: Primary Care Provider, Metaphysics Teacher Call Non-Emergent contact if: you have any medication questions if your have further chest pain . . "Provider Documentation" section prepared by Efrain Jeronimo. . Knotting Machine Operator Recommendations Knotting Machine Operator Recommendations: ACTIVITY RECOMMENDATIONS: Excess manipulation of the wrist should be avoided for the next 24-48 hours. * No lifting over 2 pounds (approximately a 1/2 gallon of milk) with the utilized arm for 24 hours. * No strenuous activity such as bowling or tennis for 3 days. * Keep the site of the procedure covered with a bandage for 24 hours. *You may shower the day after the procedure. Do not take a tub bath or submerge the puncture site in water for the next 3 days. *Do not operate any motorized equipment for 3 days. SPECIAL CARE INSTRUCTIONS: The site may be slightly bruised and sore following your procedure. Should any of the following occur, contact the Dr. who performed your procedure. 1. Redness/inflammation, swelling, chills, or fever, or colored drainage at procedure site within 3-7 days after your procedure. 2. Coldness, discoloration, ongoing numbness, severe pain, or swelling. Expect mild tingling of hand and tenderness at the puncture site for up to three days. If this persists beyond three days, or other symptoms develop, notify the Dr. who performed your procedure. BLEEDING: If the procedure site on your wrist begins to bleed, do not panic 1. Place 1 or 2 fingers firmly just slightly above the insertion site to stop the bleeding. You may be able to feel your pulse as you hold pressure. 2. Lift your finger after 5 minutes to see if the bleeding has stopped. 3. Once the bleeding has stopped, gently wipe the wrist area clean with a bandage. * If the bleeding from your wrist does not stop after 10 minutes, or if there is a large amount of bleeding or spurting, call 911 (do not drive yourself to the hospital). SKIN IRRITATION: * You may experience some redness and/or swelling in the area where radiation was administered. If any skin irritation occurs, please contact your family physician. FOLLOW UP VISIT: Keep any scheduled doctor appointments. [place] Drug Monitoring Program Search Results: no issues identified
[2018-03-02] MEDS ORDERED: LISINOPRIL 10 MG TAB PO SCH (09:00)
[2018-03-02] MEDS ORDERED: CLOPIDOGREL BISULFATE 75 MG TAB PO SCH (09:00)
[2018-03-02] MEDS ORDERED: NICO1DIS9 TD (09:50)
[2018-03-02] MEDS ORDERED: NICO1DIS8 TD (09:50)
[2018-03-02] MEDS ORDERED: NICO1DIS7 TD (09:50)
--- NOTE | 2018-03-02 09:59 | Discharge Summary ---
Discharge Summary Date of Service Mar 02, 2018. Discharge Summary Admission Date: Feb 27, 2018 at 17:12 Discharge Date: Mar 02, 2018 Discharge Disposition: Home Principal Diagnosis: NSTEMI Problems/Secondary Diagnoses: Hypertension Dyslipidemia Tobacco abuse Procedures: Left heart catheterization, PCI to left circumflex on 03/01 Consultations: Cardiology Medication Reconciliation New Medications: Nicotine (Nicotine Step 2) 14 Mg/24 Hr Dis 1 PATCH TD DAILY for 7 Days, #7 PATCH 0 Refills Nicotine (Nicotine Step 3) 7 Mg/24 Hr Dis 1 PATCH TD DAILY for 7 Days, #7 PATCH 0 Refills Nicotine (Nicotine Step 1) 21 Mg/24 Hr Dis 1 PATCH TD DAILY for 7 Days, #7 PATCH 0 Refills Aspirin (Aspirin) 81 Mg Tab 81 MG PO QAM, #30 TAB 3 Refills Clopidogrel Bisulfate (Clopidogrel) 75 Mg Tab 75 MG PO QAM, #30 TAB 3 Refills Lisinopril (Zestril) 10 Mg Tab 10 MG PO QAM, #30 TAB 3 Refills Metoprolol Succinate (Metoprolol Succinate ER) 100 Mg Tabcr 100 MG PO QPM for 30 Days, #30 TABS 3 Refills Nitroglycerin (Nitrostat) 0.4 Mg/1 Tab Subl 0.4 MG SL UD PRN for Chest Pain, #60 TABS 1 Refill as needed for chest pain, repeat every 15 minutes up to three doses Rosuvastatin Calcium (Crestor) 20 Mg Tab 20 MG PO HS, #30 TAB 3 Refills Continued Medications: 5-Hydroxytryptophan (5-Htp) 100 Mg Cap 200 MG PO QPM Cholecalciferol (Vitamin D3) 1,000 Unit Cap 1000 PO QAM Folic Acid (Folic Acid) 1 Mg Tab PO QAM Sulfasalazine (Sulfasalazine) 500 Mg Tabec 500 MG PO BID Discontinued Medications: Metoprolol Succ (Toprol Xl) (Toprol-Xl) 25 Mg Tabcr 75 MG PO QPM Discharge Exam Patient feeling well, no chest pain, no pressure, breathing well. Discussed discharge instruction in detail, went over medications. Discussed with Dr. Camilo, he is okay with discharge and will see patient in 1-2 weeks. Review of Systems: Constitutional: No fever, No chills, No sweats, No weight loss, No weakness , No fatigue, No problem reported Eyes: No worsening of vision, No eye pain, No redness, No discharge, No diplopia, No problem reported ENT: No hearing loss, No unusual epistaxis, No nasal symptoms, No sore throat, No tinnitus, No dental problems, No trouble swallowing, No problem reported Respiratory: No cough, No sputum, No wheezing, No shortness of breath, No dyspnea on exertion, No dyspnea at rest, No hemoptysis, No problem reported Cardiovascular: No chest pain, No orthopnea, No PND, No edema, No claudication, No palpitations, No problem reported Abdomen: No pain, No nausea, No vomiting, No diarrhea, No constipation, No GI bleeding, No problem reported Musculoskeletal: No joint pain, No muscle pain, No swelling, No calf pain, No problem reported Genitourinary - Female: No dysuria, No urinary frequency, No urinary urgency , No urinary incontinence, No urinary retention, No hematuria Neurologic: No memory loss, No paralysis, No weakness, No numbness/tingling , No vertigo, No balance problems, No problem reported Psychiatric: + anxiety (about wanting to smoke), No depression symptoms, No anhedonism, No insomnia, No substance abuse, No problem reported Endocrine: No fatigue, No excessive thirst, No excessive urination, No problem reported Hematologic / Lymphatic: No abnormal bleeding/bruising, No clotting problems , No swollen lymph nodes, No night sweats, No problem reported Integumentary: No rash, No itch, No new/changing skin lesions, No color change, No bleeding, No problem reported Physical Exam: General Appearance: WD/WN, no apparent distress Eyes: normal inspection, EOMI, sclerae normal ENT: normal ENT inspection, hearing grossly normal, pharynx normal Neck: supple, no adenopathy, no JVD, trachea midline Respiratory/Chest: chest non-tender, lungs clear, normal breath sounds, no respiratory distress, no accessory muscle use Cardiovascular: regular rate, rhythm, no edema, no gallop, no JVD, no murmur , normal peripheral pulses Abdomen / GI: normal bowel sounds, non tender, soft, no organomegaly Extremities: normal inspection, no calf tenderness, normal capillary refill , no pedal edema, normal range of motion, pelvis stable 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, no motor/sensory deficits , alert, normal mood/affect, normal reflexes, oriented x 3 Skin: normal color, warm/dry, no rash Lymphatic: no adenopathy Hospital Course 62 y/o F admitted on February 27, 2018 because of non-STEMI with intermittent CP 4 days Hx HTN, HLD, smoker, psoriatic arthritis and tobacco abuse disorder - NSTEMI: no chest pain after admission, troponin peaked at 10, trended down to 7 [facility] 03/01: severe CAD with 99% lesion in left circumflex, successful PCI with ANGEL Plavix started for DAPT d/c home on aspirin and Plavix Toprol increased to 100mg daily, Lisinopril started at 10mg daily Crestor started at 20mg daily patient knows that she needs to quit smoking to further reduce her risk of CAD - Dyslipidemia: LDL high at 125, started on Crestor 20mg daily - HTN: continue Toprol and Lisinopril, adjust as needed as outpatient, likely will need to increase Lisinopril - Tobacco abuse: nicotine patch, educated on stopping provided with script for tapering nicotine patch - Psoriatic arthritis, chronic and stable DVT proph: on heparin drip Total Time Spent: Greater than 30 minutes This includes examination of the patient, discharge planning, medication reconciliation, and communication with other providers. Discharge Instructions Please refer to the electronic Patient Visit Report (Discharge Instructions) for additional information. Follow-Up Dr. Perez in one week Dr. Camlio in 1-2 weeks Additional Copies To Mary Lou Perez M.D.; Artie Camilo MD
[2018-03-02 10:12] VITALS: BP 152/85; PULSE 91; TEMP 36.8; O2SAT 95
[2018-03-02] MEDS ORDERED: METOPROLOL SUCC 50MG EXT REL TAB PO SCH (21:00)
== END 2018-03-02 10:40 | disposition home or self-care (01) | DRG 247 ==
LOC: C.EDB 14:42 → C.2T 17:12 → ENRESERV 17:42
PROVIDERS: ADMIT Internal Medicine; ATTEND Internal Medicine
PROC: 4A023N7 Measurement of Cardiac Sampling and Pressure, Left Heart, Percutaneous Approach (ICD-10-PCS; principal; 2018-02-11)
PROC: B2100ZZ Fluoroscopy of Single Coronary Artery using High Osmolar Contrast (ICD-10-PCS; principal; 2018-02-11)
PROC: 027034Z Dilation of Coronary Artery, One Artery with Drug-eluting Intraluminal Device, Percutaneous Approach (ICD-10-PCS; 2018-02-11)
PROC: 02703ZZ Dilation of Coronary Artery, One Artery, Percutaneous Approach (ICD-10-PCS; 2018-02-11)
DX: I21.4 Non-ST elevation (NSTEMI) myocardial infarction (principal); I10 Essential (primary) hypertension; E78.5 Hyperlipidemia, unspecified; L40.50 Arthropathic psoriasis, unspecified; Z91.030 Bee allergy status; I25.2 Old myocardial infarction; I34.0 Nonrheumatic mitral (valve) insufficiency; F17.200 Nicotine dependence, unspecified, uncomplicated; Z88.1 Allergy status to other antibiotic agents